=== PATIENT | male | born 1990 | race American Indian/Alaskan Native ===

== ENCOUNTER 2017-03-13 17:16 | Emergency (ER) | payer OTHER ==
[2017-03-13 17:45] VITALS: BP 121/69
== END 2017-03-13 21:53 | disposition left against medical advice (07) ==
LOC: ED 17:16
DX: M54.2 Cervicalgia (principal); M54.9 Dorsalgia, unspecified; Z53.21 Procedure and treatment not carried out due to patient leaving prior to being seen by health care provider